=== PATIENT | female | born 1995 | race Caucasian/White ===

== ENCOUNTER 2024-03-22 21:03 | Emergency (ER) | payer OTHER ==
[~2024-03-22] VITALS: Ht 157.5 cm; Wt 64.0 kg
[2024-03-22 21:44] VITALS: TEMP 98.3; O2SAT 100
[2024-03-22] MEDS ORDERED: LORAZEPAM 1MG TABLET PO ONE (22:15)
[2024-03-22] MEDS ORDERED: MAGNESIUM/ALUMINUM HYDROXIDE/SIMETHICONE 30ML UDC PO ONE (22:15)
[2024-03-22] MEDS ORDERED: ONDANSETRON 4MG ODT PO ONE (22:15)
[2024-03-22 22:40] LABS: BASOPHILS % 0.6 % (0.0-2.0); HEMATOCRIT. 38.2 % (36.0-48.0); HEMOGLOBIN. 12.7 g/dL (12.0-16.0); LYMPHOCYTES % 28.8 % (20.0-50.0); MEAN CORPUSCULAR HEMOGLOBIN 29.8 pg (28.0-32.0); MEAN CORPUSCULAR HGB CONC 33.4 g/dL (31.0-37.0); MEAN CORPUSCULAR VOLUME 89.2 fL (81.0-99.0); MEAN PLATELET VOLUME 8.9 fl (7.4-10.4); MONOCYTES % 7.7 % (2.0-8.0); NEUTROPHILS % 61.9 % (40.0-76.0); PLATELET 245 x1000/uL (130-400); RED BLOOD CELL COUNT 4.28 mill/uL (4.2-5.4); RED CELL DISTRIBUTION WIDTH 13.3 % (11.6-14.6); WHITE BLOOD COUNT 7.2 x1000/uL (4.5-11.0)
[2024-03-22 22:50] LABS: CARBON DIOXIDE 24 mEq/L (21-32); CHLORIDE 104 mEq/L (98-107); SODIUM 139 mEq/L (136-145)
[2024-03-22 22:51] LABS: CALCIUM 9.2 mg/dL (8.7-10.4)
[2024-03-22 22:56] LABS: CREATININE 0.7 mg/dL (0.6-1.0); GLUCOSE 83 mg/dL (70-105); UREA NITROGEN BLOOD 7 mg/dL (9-23)
[2024-03-22 22:57] LABS: ALANINE AMINOTRANSFERASE 18 IU/L (10-49); HCG SCREEN NEGATIVE
[2024-03-22 22:58] LABS: ALBUMIN 4.5 g/dL (3.2-4.8); ASPARTATE AMINOTRANSFERASE 20 IU/L (<34); BILIRUBIN TOTAL 0.6 mg/dL (0.1-1.0); PROTEIN TOTAL 7.7 g/dL (6.0-8.3)
[2024-03-22 23:07] LABS: POTASSIUM 2.8 mEq/L (3.5-5.1)
[2024-03-22] MEDS ORDERED: POTASSIUM CHLORIDE 20MEQ TABLET SR PO ONE (23:30)
[2024-03-22 23:48] LABS: T4 FREE 1.42 ng/dL (0.89-1.76)
[2024-03-23] MEDS: POTASSIUM CHLORIDE 20MEQ TABLET SR PO NR (01:17)
[2024-03-23] MEDS: MAGNESIUM/ALUMINUM HYDROXIDE/SIMETHICONE 30ML UDC PO NR (01:17)
[2024-03-23] MEDS: SODIUM CHLORIDE 0.9% 1,000 ML IV ONE (01:17)
[2024-03-23] MEDS: ONDANSETRON 4MG ODT PO NR (01:17)
[2024-03-23] MEDS: LORAZEPAM 1MG TABLET PO NR (01:17)
[2024-03-23] MEDS ORDERED: ONDA-239 PO (02:08)
[2024-03-23] MEDS ORDERED: MAG-55 MT (02:08)
[2024-03-23] MEDS ORDERED: DICY-18 MT (02:08)
[2024-03-23] MEDS ORDERED: FAMO20TA8 MT (02:08)
[2024-03-23] MEDS ORDERED: LORA-250 MT (02:08)
[2024-03-23] MEDS ORDERED: POTA-354 MT (02:09)
[2024-03-23 02:32] VITALS: BP 115/72; PULSE 79; RESP 16; O2SAT 100
== END 2024-03-23 02:33 | disposition home or self-care (01) ==
LOC: ER 21:03
DX: R10.13 Epigastric pain (principal); F41.9 Anxiety disorder, unspecified
CPT/HCPCS: 99284; 80053; 84703; 84439; 83690; 83735; 84443; 85025; 36415; 93005; 84481; 96360; J7030; Q0162